=== PATIENT | female | born 1960 | race Caucasian/White ===

== ENCOUNTER → 2016-04-05 17:04 | Outpatient (CLI) | payer OTHER | END | disposition home or self-care (01) | LOC: D.MAMMO 14:30 | DX: Z12.31 Encounter for screening mammogram for malignant neoplasm of breast (principal) ==

== ENCOUNTER → 2017-08-07 07:37 | Outpatient (CLI) | payer OTHER | END | disposition home or self-care (01) | LOC: D.NM 07:37 | DX: R10.11 Right upper quadrant pain (principal) ==

== ENCOUNTER 2019-01-12 08:00 | Outpatient (CLI) | payer OTHER | END 2019-01-12 23:59 | disposition home or self-care (01) | LOC: D.MAMMO 08:00 | PROVIDERS: ATTEND Family Medicine | DX: Z12.31 Encounter for screening mammogram for malignant neoplasm of breast (principal) ==